=== PATIENT | male | born 1955 | race Caucasian/White ===

== ENCOUNTER → 2022-03-11 | Outpatient (CLI) | payer MEDICARE ==
[2022-03-11 18:52] LABS: African American GFR (CKD) >90 (>60 ml/min/1.73 sqM); Blood Urea Nitrogen 19 mg/dL (9-20); Non-African American GFR(CKD) >90 (>60 ml/min/1.73 sqM)
--- NOTE | 2022-03-12 07:50 | CT ---
EXAMINATION TYPE: CT abdomen wo/w con DATE OF EXAM: 03/11/2022 COMPARISON: None. HISTORY: B/L kidney mass CT DLP: 2918.70 mGycm Automated exposure control for dose reduction was used. TECHNIQUE: Helical acquisition of images was performed from the lung bases through the top of iliac crest to include entire abdomen. CONTRAST: Performed with Oral Contrast and with IV Contrast, patient injected with 100 mL of Isovue 370. FINDINGS: LUNG BASES: Focal right basilar linear scarring and/or atelectasis.. LIVER/GB: Visualized liver isodense to spleen on noncontrast images consistent with mild diffuse fatt y infiltration. Contracted gallbladder. No biliary dilatation. PANCREAS: No significant abnormality is seen. SPLEEN: No significant abnormality is seen. ADRENALS: No significant abnormality is seen. KIDNEYS: Noncontrast images show no renal calculi bilaterally. Postcontrast images show symmetric cor tical medullary uptake and excretion without hydronephrosis seen bilaterally. There are scattered simple-appearing thin-walled cysts noted throughout both kidneys. Of most concern is a 4.7 x 3.8 x 3.9 cm heterogeneous enhancing mass with washout partially exophytic laterally from the lower pole right kidney series 10 image 59 and coronal series 14 image 61 consistent with renal cell carcinoma until proven otherwise. A few hypodense lesions are slightly greater than simple appea ring thin-walled cysts in both kidneys. Lesion of most concern in the left kidney anteriorly upper to mid pole level is partially exophytic m easuring 3.2 x 2.6 cm axial image 45 series 48. Hounsfield units average between 30 and 37 on noncont rast images. Postcontrast images show this lesion slightly hypodense relative to remainder of left ki dney. Degree of enhancement may be present versus volume averaging as there are increased Hounsfield units. A similar type smaller lesion immediately posteriorly midpole level axial image 46 series 3 me asuring near 2.2 cm is noted. BOWEL: Oral contrast does not reach level of terminal ileum. No suspicious small or large bowel dila tation. LYMPH NODES: No significant abnormality is seen. OSSEOUS STRUCTURES: Posterior calcified disc herniation L2-L3 level effaces the anterior thecal sac. FREE AIR: No free air is visualized. OTHER: Small to tiny fat-containing umbilical hernia IMPRESSION: Suspicious 4.7 cm heterogeneous enhancing solid mass with washout worrisome for focal RCC in the lower pole right kidney is confirmed. There are 2 nonspecific hyperdense masses mid pole leve l left kidney with possible enhancement, solid masses versus hemorrhagic cyst. Advise correlation wit h renal protocol contrast enhanced MRI to further evaluate.
== END | disposition home or self-care (01) ==
LOC: RADCTMAIN 17:56
PROVIDERS: ATTEND Urology
DX: N28.9 Disorder of kidney and ureter, unspecified (principal)
CPT/HCPCS: 82565; 84520; 74170; 36415; Q9967